=== PATIENT | female | born 1960 | race Two or more races ===

== ENCOUNTER 2019-07-19 13:57 | Inpatient (IN) | payer BC, OTHER ==
[~2019-07-19] VITALS: Ht 157.5 cm; Wt 123.5 kg
[2019-07-19] MEDS ORDERED: SODIUM CHLORIDE 0.9% 1,000 ML IVB ONE (14:05)
[2019-07-19] MEDS ORDERED: ONDANSETRON HCL 4 MG/2 ML VIAL IV ONE (14:15)
[2019-07-19] MEDS ORDERED: MORPHINE SULFATE 4 MG/ML SYR/VIAL IV ONE (14:15)
[2019-07-19 14:28] LABS: Basophils # (auto) 0 uL; Basophils % (auto) 0.4 % (0.0-2.0); Eosinophils # (auto) 0.2 uL; Eosinophils % (auto) 2.3 % (0.0-7.0); Hematocrit 34.9 % (36.0-46.0); Hemoglobin 11.9 g/dL (12.2-16.2); Lymphocytes # (auto) 2.8 uL; Lymphocytes % (auto) 31.4 % (10.0-50.0); Mean Corpuscular Hemoglobin 29.2 pg (28.0-32.0); Mean Corpuscular Hgb Conc. 34.1 g/dL (32.0-36.0); Mean Corpuscular Volume 85.8 fL (80.0-100.0); Monocytes # (auto) 0.6 uL; Monocytes % (auto) 6.5 % (0.0-12.0); Neutrophils # (auto) 5.2 uL; Neutrophils % (auto) 59.4 % (37.0-80.0); Platelet Count (auto) 262 10^3/uL (140-450); Red Blood Cells 4.07 10^6/uL (4.0-5.20); Red Cell Distribution Width 13.5 % (11.8-14.3); White Blood Cell 8.8 10^3/uL (4.4-10.8)
[2019-07-19 14:44] LABS: Albumin 3.6 g/dL (3.4-5.0); BUN/Creatinine Ratio 13.4; Calcium 9.3 mg/dL (8.5-10.1); Potassium 3.9 mmol/L (3.5-5.1)
[2019-07-19 14:46] LABS: Bilirubin, Total 0.5 mg/dL (0.2-1.0); Total Protein 7.2 g/dL (6.4-8.2)
[2019-07-19] MEDS ORDERED: metroNIDAZOLE 500MG/100ML 100 ML IV ONE (15:00)
[2019-07-19] MEDS ORDERED: MORPHINE SULF INJ 2 MG/ML SYRINGE 1ML IV PRN (15:30)
[2019-07-19] MEDS ORDERED: PROMETHAZINE HCL 25 MG/ML 1ML IV PRN (15:30)
[2019-07-19] MEDS ORDERED: NITROGLYCERIN 0.4 MG SL TAB SL PRN (15:30)
[2019-07-19] MEDS ORDERED: ACETAMINOPHEN 500 MG TAB PO PRN (15:30)
[2019-07-19] MEDS ORDERED: cefTRIAXone 1GM/50ML D5W 50 ML IV ONE (15:30)
[2019-07-19 15:40] LABS: Urine Bacteria FEW /hpf (None Seen); Urine Blood Negative /uL (Negative); Urine Mucus FEW (None Seen); Urine Specific Gravity 1.016 (1.001-1.035); Urine WBC 1 /hpf (0 - 5)
[2019-07-19] MEDS ORDERED: LABETALOL HCL 5 MG/ML ML 20ML VIAL IV ONE (17:00)
[2019-07-19] MEDS ORDERED: LABETALOL HCL 5 MG/ML ML 20ML VIAL IV PRN (17:00)
[2019-07-19 17:15] VITALS: BP 138/84
--- NOTE | 2019-07-19 17:15 | NUR ---
MS admit from [facility] admitted to tele/MS after SBAR received. Patient oriented to Venus Dias, primary RN, unit, room, bed, and unit policies regarding patient care and visiting hours. Patient weighed by bed scale and encouraged to call if they need something. All questions and concerns addressed, patient verbalized understanding. Note:
--- NOTE | 2019-07-19 17:20 | NUR ---
PATIENT IS ALERT ORIENTED X4, ARRIVED FROM ER BY WHEELCHAIR, NO DISTRESS NOTED, PT HAS LARGE SOFT ABDOMEN, ABLE TO AMBULATE, SELF REPOSITION, VERBALIS HER DEMANDS, PAIN 0/10 AT THIS TIME, ROOM ORIENTATION GIVE TO PT, CALL LIGHT WITHIN REACH.PATIENT'S AT BED SIDE AWARE
[2019-07-19] MEDS: SODIUM CHLORIDE 0.9% 1,000 ML IV SCH (18:11)
[2019-07-19] MEDS: FAMOTIDINE (10MG/ML) 2ML VL IV SCH (18:11)
--- NOTE | 2019-07-19 18:36 | NUR ---
PT CONTINUE STABLE, TOLERATED IV ANTIBIOTICS WELL, CONTINUE MONITORING
[2019-07-19] MEDS ORDERED: GABA300C10 PO (18:42)
--- NOTE | 2019-07-19 19:25 | NUR ---
Opening Shift Note Received report from Venus BLEDSOE. Assumed care of patient, awake and alert, spouse at bedside. No S/S of distress/SOB, with moderate pain on LLQ. Instructed on POC and to call for assist PRN, will continue to monitor for changes Q1hr and PRN.
[2019-07-19] MEDS: traMADol HCL 50 MG TAB PO PRN (20:12)
[2019-07-19] MEDS: metroNIDAZOLE 500MG/100ML 100 ML IV SCH (21:40)
[2019-07-19] MEDS: TEMAZEPAM 15 MG CAP PO PRN (21:45)
[2019-07-19 22:00] VITALS: BP 161/77
--- NOTE | 2019-07-20 04:20 | NUR ---
IV removal IV site infiltrated. IV DC'd with clean sterile technique, catheter fully intact. Pressure dressing applied to site. Patient tolerated well.
[2019-07-20] MEDS: SODIUM CHLORIDE 0.9% 1,000 ML IV SCH ×2 (04:30→11:28)
--- NOTE | 2019-07-20 04:35 | NUR ---
IV insertion IV access obtained, via clean sterile technique by inserting 20 gauge catheter at R forearm after 1 attempt(s). IV secured properly. No trauma to site. Patient tolerated well.
[2019-07-20 05:00] VITALS: BP 119/60
[2019-07-20] MEDS: metroNIDAZOLE 500MG/100ML 100 ML IV SCH ×3 (05:59→22:17)
[2019-07-20] MEDS: FAMOTIDINE (10MG/ML) 2ML VL IV SCH ×2 (05:59→16:25)
--- NOTE | 2019-07-20 07:30 | NUR ---
Opening Shift Note Assumed care of patient, awake and alert. No S/S of distress/SOB or pain. Instructed on POC and to call for assist PRN, will continue to monitor for changes Q1hr and PRN.
[2019-07-20 08:00] VITALS: BP 122/69
[2019-07-20] MEDS: cefTRIAXone 1GM/50ML D5W 50 ML IV SCH (09:43)
[2019-07-20] MEDS: traMADol HCL 50 MG TAB PO PRN ×2 (09:44→20:11)
[2019-07-20] MEDS ORDERED: PANTOPRAZOLE 40 MG TAB PO SCH (10:00)
[2019-07-20] MEDS ORDERED: LABETALOL HCL 5 MG/ML ML 20ML VIAL IV PRN (11:00)
[2019-07-20 12:00] VITALS: BP 126/66
[2019-07-20 17:00] VITALS: BP 128/74
--- NOTE | 2019-07-20 19:13 | NUR ---
Opening Shift Note Assumed care of patient, awake and alert x4. No S/S of distress/SOB or pain. Complaints of pain 7/0-10 to the abdomen, pain management options discussed, will medicate as ordered Call light is within reach, side rails up x2, bed is in lowest position, brakes are locked. Instructed on POC and to call for assist PRN. All questions and concerns answered, will continue to monitor for changes Q1hr and PRN.
[2019-07-20 22:00] VITALS: BP 138/77
[2019-07-20] MEDS: TEMAZEPAM 15 MG CAP PO PRN (22:16)
[2019-07-21] MEDS: SODIUM CHLORIDE 0.9% 1,000 ML IV SCH ×2 (00:38→09:37)
[2019-07-21] MEDS: FAMOTIDINE (10MG/ML) 2ML VL IV SCH ×2 (03:36→15:28)
[2019-07-21 05:00] VITALS: BP 138/95
[2019-07-21] MEDS: metroNIDAZOLE 500MG/100ML 100 ML IV SCH ×2 (05:44→14:00)
[2019-07-21 06:01] LABS: Basophils # (auto) 0 uL; Basophils % (auto) 0.6 % (0.0-2.0); Eosinophils # (auto) 0.2 uL; Eosinophils % (auto) 4.9 % (0.0-7.0); Hematocrit 30.7 % (36.0-46.0); Hemoglobin 10.4 g/dL (12.2-16.2); Lymphocytes # (auto) 2.1 uL; Mean Corpuscular Hemoglobin 29.5 pg (28.0-32.0); Mean Corpuscular Volume 86.7 fL (80.0-100.0); Monocytes # (auto) 0.4 uL; Monocytes % (auto) 8.3 % (0.0-12.0); Neutrophils # (auto) 2.2 uL; Neutrophils % (auto) 44.2 % (37.0-80.0); Nucleated Red Blood Cells % 0.1 %; Platelet Count (auto) 222 10^3/uL (140-450); Red Blood Cells 3.54 10^6/uL (4.0-5.20); Red Cell Distribution Width 13.5 % (11.8-14.3); White Blood Cell 5.1 10^3/uL (4.4-10.8)
[2019-07-21 06:22] LABS: BUN/Creatinine Ratio 10.1; Calcium 8.7 mg/dL (8.5-10.1); Potassium 4.2 mmol/L (3.5-5.1)
[2019-07-21 08:00] VITALS: BP 128/67
[2019-07-21 09:00] VITALS: BP 128/67
[2019-07-21] MEDS: cefTRIAXone 1GM/50ML D5W 50 ML IV SCH (09:37)
[2019-07-21 13:00] VITALS: BP 148/94
--- NOTE | 2019-07-21 13:09 | NUR ---
IV removal IV DC'd with clean sterile technique, catheter fully intact. Pressure dressing applied to site. Patient tolerated well. NOTE: Iv infiltrated.
--- NOTE | 2019-07-21 16:45 | NUR ---
Discharge instructions given as ordered. Encourage to follow up with PMD as instructed. All questions and concerns addressed. Patient verbalized understanding. IV removed with catheter intact, pressure dressing applied. Patient ambulated to vehicle with all personal belongings, accompanied by family member. No distress noted at time of departure.
== END 2019-07-21 16:45 | disposition home or self-care (01) | DRG 391 ==
LOC: ER 13:57 → OVERFLOW 13:58 → EAST 17:27
PROVIDERS: ADMIT Internal Medicine; ATTEND Internal Medicine
DX: K57.92 Diverticulitis of intestine, part unspecified, without perforation or abscess without bleeding (principal); N17.0 Acute kidney failure with tubular necrosis; Z68.42 Body mass index [BMI] 45.0-49.9, adult; E66.01 Morbid (severe) obesity due to excess calories; K46.9 Unspecified abdominal hernia without obstruction or gangrene; K57.90 Diverticulosis of intestine, part unspecified, without perforation or abscess without bleeding; D63.8 Anemia in other chronic diseases classified elsewhere; N18.9 Chronic kidney disease, unspecified; G89.4 Chronic pain syndrome; R73.03 Prediabetes; Z90.49 Acquired absence of other specified parts of digestive tract; Z90.710 Acquired absence of both cervix and uterus; Z98.84 Bariatric surgery status; Z83.3 Family history of diabetes mellitus
CPT/HCPCS: 36415; 74176; 80048; 80053; 81001; 83036; 83690; 85025; 94761; 96361; 96365; 96375; G0378; J0696; J2405; J3490